=== PATIENT | female | born 1965 | race Caucasian/White ===

== ENCOUNTER → 2019-05-05 | Outpatient (CLI) | payer BC ==
[2019-05-05 09:09] LABS: ABSOLUTE BASOPHILS # (AUTO) 0.1 10^3/uL (0.0-0.2); ABSOLUTE EOSINOPHILS # (AUTO) 0.2 10^3/uL (0.0-0.6); ABSOLUTE LYMPHOCYTES (AUTO) 2.5 10^3/uL (0.5-4.7); ABSOLUTE MONOCYTES (AUTO) 0.7 10^3/uL (0.1-1.4); ABSOLUTE NEUT (AUTO) 4.3 10^3/uL (1.7-8.2); BASOPHILS % (AUTO) 0.9 % (0-2); EOSINOPHILS % (AUTO) 2.6 % (0-6); HEMOGLOBIN 14.3 g/dL (12.0-15.5); LYMPHOCYTES % (AUTO) 31.8 % (13-45); MEAN CORPUSCULAR HEMOGLOBIN 31.6 pg (27.0-33.4); MEAN CORPUSCULAR HGB CONC 34.8 g/dL (32.0-36.0); MEAN CORPUSCULAR VOLUME 91 fl (80-97); MONOCYTES % (AUTO) 9.1 % (3-13); PLATELET COUNT 330 10^3/uL (150-450); RED BLOOD COUNT 4.52 10^6/uL (3.72-5.28); RED CELL DISTRIBUTION WIDTH 13.2 % (11.5-14.0); SEGMENTED NEUTROPHILS % (AUTO) 55.6 % (42-78); TOTAL CELLS COUNTED % (AUTO) 100 %; WHITE BLOOD COUNT 7.7 10^3/uL (4.0-10.5)
[2019-05-05 09:34] LABS: ALBUMIN 4.3 g/dL (3.5-5.0); ALKALINE PHOSPHATASE 65 U/L (38-126); ANION GAP 12 (5-19); ASPARTATE AMINO TRANSFERASE 23 U/L (14-36); BILIRUBIN,DIRECT 0.2 mg/dL (0.0-0.4); BILIRUBIN,TOTAL 0.7 mg/dL (0.2-1.3); BLOOD UREA NITROGEN 15 mg/dL (7-20); CALCIUM 9.4 mg/dL (8.4-10.2); CARBON DIOXIDE 24 mmol/L (22-30); CHLORIDE 104 mmol/L (98-107); CHOLESTEROL 195.47 mg/dL (0-200); GLUCOSE 94 mg/dL (75-110); POTASSIUM 4.7 mmol/L (3.6-5.0); TOTAL PROTEIN 8.1 g/dL (6.3-8.2); TRIGLYCERIDES 126 mg/dL (<150)
[2019-05-05 09:46] LABS: DIRECT LDL 133 mg/dL (<100)
== END ==
LOC: OD 07:37
PROVIDERS: ATTEND Family Medicine
DX: Z13.220 Encounter for screening for lipoid disorders (principal); Z86.2 Personal history of diseases of the blood and blood-forming organs and certain disorders involving the immune mechanism; Z13.1 Encounter for screening for diabetes mellitus
CPT/HCPCS: 36415; 80053; 80061; 83036; 84443; 85025

== ENCOUNTER 2019-10-08 13:24 | Day surgery (SDC) | payer BC ==
[2019-10-08] MEDS ORDERED: EPINEPHRINE INJ 1 MG/10 ML DISP.SYRIN ONE (15:19)
[2019-10-08] MEDS ORDERED: PROPOFOL INJ 200 MG/20 ML VIAL IV ONE (15:39)
[2019-10-08] MEDS ORDERED: PROMETHAZINE HCL INJ 25 MG/1 ML VIAL IV PRN (15:42)
[2019-10-08] MEDS ORDERED: MEPERIDINE HCL/PF INJ 25 MG/1 ML DISP.SYRIN IV PRN (15:42)
[2019-10-08] MEDS ORDERED: FENTANYL CITRATE INJ/PF 100 MCG/2 ML AMPUL IV PRN ×3 (15:42)
[2019-10-08] MEDS ORDERED: ONDANSETRON HCL INJ/PF 4 MG/2 ML SDV IV PRN (15:42)
[2019-10-08] MEDS ORDERED: DIPHENHYDRAMINE HCL 50 MG/ML VIAL IV PRN (15:42)
--- NOTE | 2019-10-08 16:55 | Operative Report ---
Operative Report DATE OF SURGERY: 10/08/19 Operative Report: Pre-op diagnosis: Positive Cologuard test Post-op diagnosis: 1. Proximal transverse polyp 2. Distal transverse polyp 3. Descending colon polyps 4. Sigmoid colon polyp Surgery: Colonoscopy with polypectomy and tattooing Medications: As per anesthesia Tissue removed: Multiple colon polyps Procedure: After informed consent obtained from patient, conscious sedation was achieved. A digital rectal examination was performed and this was unremarkable. The colonoscope was inserted into the rectum and advanced to the cecum. The appendiceal orifice and the terminal ileum were both identified. The mucosa was examined into details as the colonoscope was slowly pulled out of the patient. The endoscope was retroflexed in the rectum. Patient tolerated the procedure well. Findings Terminal ileum: Normal Cecum: Normal Ascending colon: Normal Transverse colon: A sessile 2-2.5cm sessile polyp was noted in the proximal transverse around the hepatic flexure. The polyp was removed piecemeal and the site was tattooed. A separate 9 mm polyp was removed from the distal transverse colon. Descending colon: Two 5 to 6 mm polyps were removed with a hot snare. Sigmoid colon: A 2 cm pedunculated polyp was noted in the distal sigmoid colon and this was completely removed with the polypectomy snare. The site was also tattooed. Rectum: Normal except for internal hemorrhoids Plan: Await pathology. Repeat colonoscopy in 6 months OPERATION: Colonoscopy with polypectomy and tattoo injection
[2019-10-08 17:26] VITALS: BP 130/82
== END 2019-10-08 17:35 | disposition home or self-care (01) ==
LOC: OROUT 13:24
PROVIDERS: ATTEND Internal Medicine Gastroenterology
DX: Z12.11 Encounter for screening for malignant neoplasm of colon (principal); D12.3 Benign neoplasm of transverse colon; D12.4 Benign neoplasm of descending colon; D12.6 Benign neoplasm of colon, unspecified; K64.8 Other hemorrhoids; D12.5 Benign neoplasm of sigmoid colon
CPT/HCPCS: 45385; 88305 ×2; J2704; 811; J0171

== ENCOUNTER 2020-04-21 12:57 | Day surgery (SDC) | payer BC ==
[~2020-04-21 12:57] MED LIST: PROPOFOL INJ 200 MG/20 ML VIAL IV ONE
--- NOTE | 2020-04-21 15:03 | Operative Report ---
Operative Report DATE OF SURGERY: 04/21/20 Operative Report: Pre-op diagnosis: History of multiple large polyps 6 months ago Post-op diagnosis: 1. Ascending colon polyp 2. Rectal polyps 3. Internal hemorrhoids Surgery: Colonoscopy with polypectomy Medications: As per anesthesia Tissue removed: Colon polyps Procedure: After informed consent obtained from patient, conscious sedation was achieved. A digital rectal examination was performed and this was unremarkable. The colonoscope was inserted into the rectum and advanced to the cecum. The appendiceal orifice and the terminal ileum were both identified. The mucosa was examined into details as the colonoscope was slowly pulled out of the patient. The endoscope was retroflexed in the rectum. Patient tolerated the procedure well. Findings Cecum: Normal Ascending colon: A 3 mm polyp was removed with a cold snare. Transverse colon: Previous tattoo and scarring was noted in the hepatic flexure with no residual polyp Descending colon: Normal Sigmoid colon: A tattooed polypectomy site was noted in the distal sigmoid colon with no residual polyp. Rectum: Two 3 to 4 mm polyps were removed with a cold snare. Internal hemorrhoids were noted Plan: Follow-up colonoscopy in 3 years OPERATION: .
[2020-04-21 15:32] VITALS: BP 114/69
[2020-04-21] MEDS ORDERED: PROPOFOL INJ 200 MG/20 ML VIAL IV ONE (15:32)
== END 2020-04-21 15:35 | disposition home or self-care (01) ==
LOC: END 12:57
PROVIDERS: ATTEND Internal Medicine Gastroenterology
DX: D12.2 Benign neoplasm of ascending colon (principal); K62.1 Rectal polyp; K64.8 Other hemorrhoids; E66.9 Obesity, unspecified; Z20.828 Contact with and (suspected) exposure to other viral communicable diseases; Z86.010 Personal history of colon polyps
CPT/HCPCS: 45385; 88305 ×2; 00811; U0003; J2704; C9803; 811; 87635

== ENCOUNTER → 2020-06-07 | Outpatient (CLI) | payer BC ==
[~2020-06-07] MED LIST changes: +COVID-19 VACCINE (PFIZER)/PF 30 MCG/0.3 ML VIAL IM ONE; +EPINEPHRINE INJ/PF 1 MG/1 ML AMPULE IM PRN; -PROPOFOL INJ 200 MG/20 ML VIAL IV ONE
== END ==
LOC: EMPHEALTH 11:42
PROVIDERS: ATTEND Internal Medicine
DX: Z23 Encounter for immunization (principal)
CPT/HCPCS: 91300

== ENCOUNTER → 2020-06-28 | Outpatient (CLI) | payer BC | LOC: EMPHEALTH 13:09 | PROVIDERS: ATTEND Internal Medicine | DX: Z23 Encounter for immunization (principal) | CPT/HCPCS: 91300 ==